=== PATIENT | female | born 1935 | race Caucasian/White ===

== ENCOUNTER 2023-09-19 07:47 | Inpatient (IN) | payer MEDICARE ==
[2023-09-19 08:37] LABS: BASOPHILS ABSOLUTE AUTO 0.1 K/mm3 (0.0-0.2); BASOPHILS PERCENT AUTO 0.6 % (0.0-1.0); EOSINOPHILS ABSOLUTE AUTO 0.1 K/mm3 (0.0-0.4); EOSINOPHILS PERCENT AUTO 1.2 % (0.0-6.0); HEMATOCRIT 42.4 % (37.0-47.0); HEMOGLOBIN 13.8 gm/dl (12.0-16.0); IMMATURE GRAN ABSOLUTE AUTO 0.02 K/mm3 (0.00-0.05); IMMATURE GRAN PERCENT AUTO 0.2 % (0.0-0.4); LYMPHOCYTES ABSOLUTE AUTO 1.7 K/mm3 (1.0-4.8); LYMPHOCYTES PERCENT AUTO 19.1 % (24.0-44.0); MEAN CORPUSCULAR HEMOGLOBIN 28.5 pg (28.0-32.0); MEAN CORPUSCULAR HGB CONC 32.5 g/dl (32.0-36.0); MEAN CORPUSCULAR VOLUME 87.6 fl (83.0-99.0); MEAN PLATELET VOLUME 9.8 fl (9.4-12.3); MONOCYTES ABSOLUTE AUTO 0.7 K/mm3 (0.0-0.8); MONOCYTES PERCENT AUTO 8.3 % (0.0-8.0); NEUTROPHILS ABSOLUTE AUTO 6.2 K/mm3 (1.8-7.7); NEUTROPHILS PERCENT AUTO 70.6 % (41.0-71.0); PLATELET COUNT,PLT 260 K/mm3 (150-400); RED BLOOD CELL COUNT 4.84 M/mm3 (4.10-5.30); WHITE BLOOD CELL COUNT,WBC 8.84 K/mm3 (3.9-11.3)
[2023-09-19] MEDS: Sodium Chloride 0.9% 1,000 ML IV SCH (08:39)
[2023-09-19] MEDS: Furosemide 40 MG/4 ML VIAL IVPUSH SCH (08:39)
[2023-09-19] MEDS: Diltiazem 125 MG in Sodium Chloride 0.9% 100 ML IV SCH (08:40)
[2023-09-19] MEDS: Diltiazem 25 MG/5 ML SDV IVPUSH ONE (08:42)
[2023-09-19 09:11] LABS: LACTIC ACID 1.1 mmol/L (0.4-2.0)
[2023-09-19 09:17] LABS: ALBUMIN 3.5 g/dl (3.4-5.0); ANION GAP 13.3 (5-15); BILIRUBIN TOTAL 1.3 mg/dL (0.2-1.0); BUN/CREATININE RATIO 19.3 (14-18); C-REACTIVE PROTEIN 0.5 mg/dL (<0.30); CREATININE 1.4 mg/dL (0.55-1.02); EST CRCL DRUG DOSING (CG) 21.77 mL/min; MAGNESIUM 2.3 mg/dL (1.8-2.4); POTASSIUM,K 4.3 mEq/L (3.5-5.1); PROTEIN TOTAL,TP 7.2 g/dl (6.4-8.2)
[2023-09-19 09:24] LABS: APPEARANCE,URINE CLEAR (Clear); BILIRUBIN,URINE NEGATIVE (Negative); COLOR,URINE YELLOW (Yellow); GLUCOSE,URINE NEGATIVE (Negative); KETONES,URINE NEGATIVE (Negative); LEUKOCYTE ESTERASE,URINE 1+ (Negative); NITRITE,URINE NEGATIVE (Negative); OCCULT BLOOD,URINE NEGATIVE (Negative); PH,URINE 5.5 (5.0-8.0); PROTEIN,URINE NEGATIVE (Negative); UROBILINOGEN,URINE 0.2 (0.2-1.0)
[2023-09-19 09:46] LABS: RBC,URINE 0-5 /hpf (0-5)
[2023-09-19 09:47] LABS: BACTERIA,URINE MODERATE /hpf (FEW); MUCUS,URINE FEW /hpf (FEW)
[2023-09-19] MEDS: Enoxaparin 30 MG/0.3 ML Syringe SUBCUT SCH (12:54)
[2023-09-19] MEDS: Sodium Chloride 0.9% 100 ML ONE (12:56)
[2023-09-19] MEDS: Apixaban 2.5 MG Tab PO ONE (14:12)
[2023-09-19] MEDS: Timolol Maleate 0.25% Ophth Soln 5 ML Bottle EYEBOTH SCH (20:24)
[2023-09-20 05:32] LABS: BASOPHILS ABSOLUTE AUTO 0.1 K/mm3 (0.0-0.2); BASOPHILS PERCENT AUTO 0.7 % (0.0-1.0); EOSINOPHILS ABSOLUTE AUTO 0.2 K/mm3 (0.0-0.4); EOSINOPHILS PERCENT AUTO 2.8 % (0.0-6.0); HEMATOCRIT 40.9 % (37.0-47.0); HEMOGLOBIN 13.4 gm/dl (12.0-16.0); IMMATURE GRAN ABSOLUTE AUTO 0.02 K/mm3 (0.00-0.05); IMMATURE GRAN PERCENT AUTO 0.3 % (0.0-0.4); LYMPHOCYTES ABSOLUTE AUTO 1.7 K/mm3 (1.0-4.8); LYMPHOCYTES PERCENT AUTO 22.1 % (24.0-44.0); MEAN CORPUSCULAR HEMOGLOBIN 28.3 pg (28.0-32.0); MEAN CORPUSCULAR HGB CONC 32.8 g/dl (32.0-36.0); MEAN CORPUSCULAR VOLUME 86.5 fl (83.0-99.0); MEAN PLATELET VOLUME 10.1 fl (9.4-12.3); MONOCYTES ABSOLUTE AUTO 0.8 K/mm3 (0.0-0.8); NEUTROPHILS ABSOLUTE AUTO 4.7 K/mm3 (1.8-7.7); NEUTROPHILS PERCENT AUTO 63.1 % (41.0-71.0); PLATELET COUNT,PLT 246 K/mm3 (150-400); RED BLOOD CELL COUNT 4.73 M/mm3 (4.10-5.30); WHITE BLOOD CELL COUNT,WBC 7.46 K/mm3 (3.9-11.3)
[2023-09-20 06:00] LABS: ALBUMIN 3.3 g/dl (3.4-5.0); ANION GAP 17.7 (5-15); BILIRUBIN TOTAL 1.2 mg/dL (0.2-1.0); BUN/CREATININE RATIO 21.4 (14-18); CALCIUM 8.9 mg/dL (8.5-10.1); CREATININE 1.4 mg/dL (0.55-1.02); EST CRCL DRUG DOSING (CG) 21.77 mL/min; POTASSIUM,K 3.7 mEq/L (3.5-5.1); PROTEIN TOTAL,TP 6.7 g/dl (6.4-8.2)
[2023-09-20] MEDS ORDERED: Timolol Maleate 0.25% Ophth Soln 5 ML Bottle EYEBOTH SCH ×2 (08:17→09:00)
[2023-09-20] MEDS: Aspirin 81 MG Tab.EC PO SCH (08:31)
[2023-09-20] MEDS: atorvaSTATin 20 MG Tab PO SCH (08:31)
[2023-09-20] MEDS: Multivitamin Tab PO SCH (08:31)
[2023-09-20] MEDS: Cholecalciferol (Vitamin D3) 5,000 UNIT Cap PO SCH (08:32)
[2023-09-20] MEDS: Diltiazem 120 MG Cap.CD PO SCH (08:32)
[2023-09-20] MEDS: Levothyroxine 25 MCG Tab PO SCH (08:32)
[2023-09-20] MEDS: Furosemide 20 MG/2 ML VIAL IVPUSH SCH (08:35)
[2023-09-20] MEDS: Timolol Maleate 0.25% Ophth Soln 5 ML Bottle EYEBOTH SCH (08:35)
[2023-09-20] MEDS: Furosemide 40 MG Tab PO SCH (10:26)
[2023-09-20] MEDS ORDERED: Metoprolol Tartrate 5 MG/5 ML SDV IVPUSH ONE (13:49)
[2023-09-20] MEDS: Metoprolol Tartrate 5 MG/5 ML SDV IVPUSH PRN (17:48)
[2023-09-20] MEDS: Melatonin 3 MG Tab PO PRN (20:04)
[2023-09-21 05:42] LABS: A/G RATIO 0.9 (1-2); ALBUMIN 3.1 g/dl (3.4-5.0); ANION GAP 15.9 (5-15); BILIRUBIN TOTAL 1.2 mg/dL (0.2-1.0); BUN/CREATININE RATIO 22.1 (14-18); CALCIUM 8.8 mg/dL (8.5-10.1); CREATININE 1.4 mg/dL (0.55-1.02); EST CRCL DRUG DOSING (CG) 21.77 mL/min; POTASSIUM,K 3.9 mEq/L (3.5-5.1); PROTEIN TOTAL,TP 6.5 g/dl (6.4-8.2)
[2023-09-21 05:49] LABS: BASOPHILS PERCENT AUTO 0.5 % (0.0-1.0); EOSINOPHILS ABSOLUTE AUTO 0.2 K/mm3 (0.0-0.4); EOSINOPHILS PERCENT AUTO 2.6 % (0.0-6.0); HEMATOCRIT 39.7 % (37.0-47.0); HEMOGLOBIN 13.3 gm/dl (12.0-16.0); IMMATURE GRAN ABSOLUTE AUTO 0.02 K/mm3 (0.00-0.05); IMMATURE GRAN PERCENT AUTO 0.3 % (0.0-0.4); LYMPHOCYTES ABSOLUTE AUTO 1.8 K/mm3 (1.0-4.8); LYMPHOCYTES PERCENT AUTO 22.6 % (24.0-44.0); MEAN CORPUSCULAR HEMOGLOBIN 28.6 pg (28.0-32.0); MEAN CORPUSCULAR HGB CONC 33.5 g/dl (32.0-36.0); MEAN CORPUSCULAR VOLUME 85.4 fl (83.0-99.0); MEAN PLATELET VOLUME 9.9 fl (9.4-12.3); MONOCYTES ABSOLUTE AUTO 0.9 K/mm3 (0.0-0.8); MONOCYTES PERCENT AUTO 10.9 % (0.0-8.0); NEUTROPHILS ABSOLUTE AUTO 4.9 K/mm3 (1.8-7.7); NEUTROPHILS PERCENT AUTO 63.1 % (41.0-71.0); PLATELET COUNT,PLT 259 K/mm3 (150-400); RED BLOOD CELL COUNT 4.65 M/mm3 (4.10-5.30)
[2023-09-21] MEDS: Levothyroxine 25 MCG Tab PO ONE (10:00)
[2023-09-21] MEDS: Metoprolol Tartrate 25 MG Tab PO SCH (14:31)
[2023-09-21] MEDS ORDERED: Metoprolol Tartrate 5 MG/5 ML SDV IVPUSH PRN (19:38)
[2023-09-22 04:44] LABS: BASOPHILS ABSOLUTE AUTO 0.1 K/mm3 (0.0-0.2); BASOPHILS PERCENT AUTO 0.7 % (0.0-1.0); EOSINOPHILS ABSOLUTE AUTO 0.2 K/mm3 (0.0-0.4); EOSINOPHILS PERCENT AUTO 2.5 % (0.0-6.0); HEMATOCRIT 40.7 % (37.0-47.0); HEMOGLOBIN 13.4 gm/dl (12.0-16.0); IMMATURE GRAN ABSOLUTE AUTO 0.02 K/mm3 (0.00-0.05); IMMATURE GRAN PERCENT AUTO 0.3 % (0.0-0.4); MEAN CORPUSCULAR HEMOGLOBIN 28.7 pg (28.0-32.0); MEAN CORPUSCULAR HGB CONC 32.9 g/dl (32.0-36.0); MEAN CORPUSCULAR VOLUME 87.2 fl (83.0-99.0); MEAN PLATELET VOLUME 9.7 fl (9.4-12.3); MONOCYTES ABSOLUTE AUTO 0.7 K/mm3 (0.0-0.8); MONOCYTES PERCENT AUTO 10.1 % (0.0-8.0); NEUTROPHILS ABSOLUTE AUTO 4.4 K/mm3 (1.8-7.7); NEUTROPHILS PERCENT AUTO 59.4 % (41.0-71.0); PLATELET COUNT,PLT 254 K/mm3 (150-400); RED BLOOD CELL COUNT 4.67 M/mm3 (4.10-5.30); WHITE BLOOD CELL COUNT,WBC 7.33 K/mm3 (3.9-11.3)
[2023-09-22 05:10] LABS: A/G RATIO 0.9 (1-2); ALBUMIN 3.2 g/dl (3.4-5.0); BILIRUBIN TOTAL 0.7 mg/dL (0.2-1.0); BUN/CREATININE RATIO 23.1 (14-18); CALCIUM 8.9 mg/dL (8.5-10.1); CREATININE 1.6 mg/dL (0.55-1.02); EST CRCL DRUG DOSING (CG) 19.05 mL/min; PHOSPHORUS 4.7 mg/dL (2.6-4.7); PROTEIN TOTAL,TP 6.6 g/dl (6.4-8.2)
[2023-09-22] MEDS: Levothyroxine 25 MCG Tab PO SCH (07:03)
[2023-09-22] MEDS: Furosemide 20 MG Tab PO SCH (08:38)
[2023-09-22] MEDS: Metoprolol Tartrate 25 MG Tab PO SCH (08:51)
[2023-09-23 04:43] LABS: ANION GAP 14.9 (5-15); BUN/CREATININE RATIO 29.2 (14-18); CREATININE 1.3 mg/dL (0.55-1.02); EST CRCL DRUG DOSING (CG) 23.44 mL/min; POTASSIUM,K 3.9 mEq/L (3.5-5.1)
[2023-09-23] MEDS: Heparin Sodium 5,000 Units/ML Vial SUBCUT SCH (05:11)
== END 2023-09-23 18:21 | disposition home or self-care (01) | DRG 682 ==
LOC: JD.ED 07:47 → JD.ICU 09:47
PROVIDERS: ADMIT Student in an Organized Health Care Education/Training Program; ATTEND Student in an Organized Health Care Education/Training Program
DX: I50.9 Heart failure, unspecified (principal); N17.9 Acute kidney failure, unspecified; I50.23 Acute on chronic systolic (congestive) heart failure; J96.01 Acute respiratory failure with hypoxia; N39.0 Urinary tract infection, site not specified; I25.5 Ischemic cardiomyopathy; I48.91 Unspecified atrial fibrillation; E03.9 Hypothyroidism, unspecified; E78.00 Pure hypercholesterolemia, unspecified; N18.32 Chronic kidney disease, stage 3b; I95.9 Hypotension, unspecified; Z98.51 Tubal ligation status; Z90.49 Acquired absence of other specified parts of digestive tract; Z79.82 Long term (current) use of aspirin; Z79.899 Other long term (current) drug therapy; Z79.890 Hormone replacement therapy
CPT/HCPCS: 36415; 71045; 71045-26; 80048; 80053; 81001; 83605; 83735; 83880; 84100; 84439; 84443; 84484; 85025; 86140; 87086; 93005; 93306; 96365; 96375; 97110-GP; 97161-GP; 99285-25; A9270-GY; J1644; J1650; J1940; J3490; J7030

== ENCOUNTER 2023-10-27 00:38 | Emergency (ER) | payer MEDICARE ==
[2023-10-27 01:06] LABS: BASOPHILS PERCENT AUTO 0.2 % (0.0-1.0); EOSINOPHILS ABSOLUTE AUTO 0.5 K/mm3 (0.0-0.4); EOSINOPHILS PERCENT AUTO 4.5 % (0.0-6.0); HEMATOCRIT 46.6 % (37.0-47.0); HEMOGLOBIN 15.1 gm/dl (12.0-16.0); IMMATURE GRAN ABSOLUTE AUTO 0.03 K/mm3 (0.00-0.05); IMMATURE GRAN PERCENT AUTO 0.3 % (0.0-0.4); LYMPHOCYTES ABSOLUTE AUTO 1.1 K/mm3 (1.0-4.8); LYMPHOCYTES PERCENT AUTO 10.6 % (24.0-44.0); MEAN CORPUSCULAR HEMOGLOBIN 28.1 pg (28.0-32.0); MEAN CORPUSCULAR HGB CONC 32.4 g/dl (32.0-36.0); MEAN CORPUSCULAR VOLUME 86.8 fl (83.0-99.0); MEAN PLATELET VOLUME 10.3 fl (9.4-12.3); MONOCYTES PERCENT AUTO 9.4 % (0.0-8.0); NEUTROPHILS ABSOLUTE AUTO 7.9 K/mm3 (1.8-7.7); PLATELET COUNT,PLT 227 K/mm3 (150-400); RED BLOOD CELL COUNT 5.37 M/mm3 (4.10-5.30); WHITE BLOOD CELL COUNT,WBC 10.51 K/mm3 (3.9-11.3)
[2023-10-27] MEDS: Iopamidol 755 Mg/ML 100 ML Bottle IVPUSH ONE (01:10)
[2023-10-27 01:25] LABS: INR 1.08; PROTHROMBIN TIME 11.4 SECONDS (9.7-12.0)
[2023-10-27 01:26] LABS: PTT,PARTIAL THROMBOPLSTIN TIME 28.2 SECONDS (21.7-31.4)
[2023-10-27 01:31] LABS: A/G RATIO 0.8 (1-2); ALBUMIN 3.1 g/dl (3.4-5.0); ANION GAP 16.9 (5-15); BILIRUBIN TOTAL 2.1 mg/dL (0.2-1.0); BUN/CREATININE RATIO 21.8 (14-18); CALCIUM 8.9 mg/dL (8.5-10.1); CREATININE 1.7 mg/dL (0.55-1.02); EST CRCL DRUG DOSING (CG) 18.79 mL/min; PROTEIN TOTAL,TP 7.1 g/dl (6.4-8.2)
[2023-10-27 01:35] LABS: POTASSIUM,K 4.9 mEq/L (3.5-5.1)
[2023-10-27] MEDS: Aspirin 300 MG Supp RECTAL ONE (01:47)
[2023-10-27] MEDS: Aspirin 81 MG Tab.Chew PO ONE (02:24)
== END 2023-10-27 02:11 ==
LOC: JD.ED 00:38
DX: I63.411 Cerebral infarction due to embolism of right middle cerebral artery (principal); E78.00 Pure hypercholesterolemia, unspecified; E03.9 Hypothyroidism, unspecified; Z79.82 Long term (current) use of aspirin; Z79.890 Hormone replacement therapy; Z79.899 Other long term (current) drug therapy; Z86.16 Personal history of COVID-19; Z90.49 Acquired absence of other specified parts of digestive tract
CPT/HCPCS: 36415; 70450; 70496; 70498; 80053; 84484; 85025; 85610; 85730; 93005; 99285; A9270; Q9967; 93010